=== PATIENT | male | born 1955 | race Caucasian/White ===

== ENCOUNTER 2016-10-02 17:22 | Inpatient (IN) | payer MEDICAID ==
[~2016-10-02] VITALS: Ht 177.8 cm; Wt 86.2 kg
[2016-10-02] MEDS ORDERED: HALOPERIDOL LACTATE INJ 5 MG/ML VIAL ONE (17:47)
[2016-10-02] MEDS ORDERED: DILTIAZEM HCL 25 MG IV ONE ×2 (17:47→18:48)
[2016-10-02] MEDS ORDERED: LORAZEPAM INJ 2 MG/ML VIAL ONE (17:47)
[2016-10-02] MEDS ORDERED: IV SET PRIMARY PUMP SET 1 EA INFUS.SET MC ONE ×5 (17:47→22:15)
[2016-10-02] MEDS ORDERED: IV NS 0.9% 1,000 ML ONE (17:47)
[2016-10-02 17:52] LABS: BASOPHILS % (AUTO) 0.6 % (0.0-2.0); DIFF TOTAL % 100 %; EOSINOPHILS # (AUTO) 0.1 /CMM (0.0-0.7); EOSINOPHILS % (AUTO) 1.4 % (0.0-6.0); HEMATOCRIT 32 % (39-51); HEMOGLOBIN 10.4 g/dL (13.5-17.5); LYMPHOCYTES # (AUTO) 1.3 /CMM (0.8-4.8); LYMPHOCYTES % (AUTO) 20.5 % (20.0-44.0); MEAN CORPUSCULAR HEMOGLOBIN 30 PG (26.0-33.0); MEAN CORPUSCULAR HGB CONC 33 g/dl (31.0-36.0); MEAN CORPUSCULAR VOLUME 92 fL (80-96); MONOCYTES # (AUTO) 0.4 /CMM (0.1-1.30); MONOCYTES % (AUTO) 6.5 % (2.0-12.0); NEUTROPHILS # (AUTO) 4.5 /CMM (1.8-8.9); PLATELET COUNT (AUTO) 191 /CMM (150-450); WHITE BLOOD COUNT (AUTO) 6.3 K/uL (4.3-11.0)
[2016-10-02] MEDS ORDERED: QUET300T2 PO (17:55)
[2016-10-02] MEDS ORDERED: METO25TA6 PO (17:55)
[2016-10-02] MEDS ORDERED: BUPR100T13 PO (17:55)
[2016-10-02] MEDS ORDERED: OMEP20CA10 PO (17:55)
[2016-10-02] MEDS ORDERED: TEMA30CA PO (17:55)
[2016-10-02] MEDS ORDERED: LISI10TA5 PO (17:55)
[2016-10-02] MEDS ORDERED: ATOR40TA PO (17:55)
[2016-10-02] MEDS ORDERED: HALOPERIDOL LACTATE INJ 5 MG/ML VIAL IVP ONE (18:00)
[2016-10-02] MEDS ORDERED: IV NS 0.9% 1,000 ML BAG IV ONE (18:00)
[2016-10-02] MEDS ORDERED: LORAZEPAM INJ 2 MG/ML VIAL IVP ONE (18:00)
[2016-10-02] MEDS ORDERED: DILTIAZEM HCL 50 MG IV IV ONE ×2 (18:00→19:00)
[2016-10-02 18:01] LABS: CALCIUM, SERUM 8.7 mg/dL (8.5-10.1); CREATININE 1.2 mg/dL (0.6-1.3); POTASSIUM 3.3 mmol/L (3.5-5.1)
[2016-10-02 18:07] LABS: TROPONIN I 0.052 ng/mL (0.00-0.056)
[2016-10-02 18:12] LABS: ALBUMIN 3.9 g/dL (3.4-5.0); BILIRUBIN,DIRECT 0.1 mg/dL (0.0-0.2); BILIRUBIN,TOTAL 0.3 mg/dL (0.2-1.0); INDIRECT BILIRUBIN 0.2 mg/dL (0.0-1.1); TOTAL PROTEIN, SERUM 7.8 g/dL (6.4-8.2)
[2016-10-02 18:13] LABS: SALICYLATE 1.2 mg/dL (2.8-20.0)
[2016-10-02 19:07] LABS: KETONES,URINE Negative (NEGATIVE); LEUKOCYTE ESTERASE ,URINE Negative (NEGATIVE)
[2016-10-02 19:13] LABS: CANNABINOID, URINE NEGATIVE (NEGATIVE); PHENCYCLIDINE SCREEN,URINE NEGATIVE (NEGATIVE)
[2016-10-02 19:27] LABS: ADD UA MICROSCOPIC YES
[2016-10-02 19:33] LABS: ADD URINE CULTURE NO; RBC,URINE 0-2 /HPF (0-2); WBC,URINE 0-2 /HPF (0-3)
[2016-10-02] MEDS ORDERED: NICARDIPINE 20 MG/200 ML IV ONE (20:00)
[2016-10-02] MEDS ORDERED: D5W IV ONE (20:00)
[2016-10-02] MEDS ORDERED: NICARDIPINE IN DEXTROSE,ISO-OS 200 ML IV ONE (20:30)
[2016-10-02 21:10] VITALS: BP 122/51
[2016-10-02] MEDS ORDERED: POTASSIUM CL. PREMIX PERIPHER. 50 ML ONE (21:26)
[2016-10-02 21:30] VITALS: BP 114/75
[2016-10-02] MEDS ORDERED: ONDANSETRON HCL/PF 4 MG/2 ML VIAL IVP PRN (21:30)
[2016-10-02] MEDS: Folic acid 1 MG in IV D5W 50 ML IV SCH ×2 (21:30→23:11)
[2016-10-02] MEDS ORDERED: MAGNESIUM HYDROXIDE 30 ML UDC PO PRN (21:30)
[2016-10-02] MEDS ORDERED: MAG HYDROX/AL HYDROX/SIMETH 30 ML UDC PO PRN (21:30)
[2016-10-02] MEDS ORDERED: Thiamine 100 MG in IV D5W 50 ML IV SCH (21:30)
[2016-10-02] MEDS ORDERED: Z GUARD REMEDY 2 OZ OINT TP PRN (21:30)
[2016-10-02] MEDS ORDERED: POTASSIUM CHLORIDE 10 MEQ/50 ML PREMIXED IVPB FOR PERIPHERAL LINE IV ONE (21:30)
[2016-10-02] MEDS ORDERED: IV D5/0.45 NACL 1,000 ML IV ONE (21:56)
[2016-10-02] MEDS ORDERED: SECONDARY IV SET 1 EA INFUS.SET MC ONE (21:57)
[2016-10-02] MEDS ORDERED: ASPIRIN 81 MG TAB.CHEW ONE (21:58)
[2016-10-02] MEDS ORDERED: Thiamine 100 MG/ML VIAL ONE (21:59)
[2016-10-02] MEDS ORDERED: IV D5W 100 ML IV ONE ×2 (21:59→22:12)
[2016-10-02 22:00] VITALS: BP 106/74
[2016-10-02] MEDS ORDERED: ATORVASTATIN 40 MG TABLET PO SCH (22:00)
[2016-10-02] MEDS: IV D5/0.45 NACL 1,000 ML IV PRN (22:02)
[2016-10-02 22:09] LABS: CREATINE KINASE MB 3.3 ng/mL (0-3.6)
[2016-10-02] MEDS ORDERED: AMIODARONE 150 MG/3 ML VIAL IV ONE ×3 (22:12→22:13)
[2016-10-02] MEDS ORDERED: IV D5W 500 ML IV ONE (22:17)
[2016-10-02] MEDS ORDERED: AMIODARONE 900 MG in IV D5W 482 ML IV PRN (22:30)
[2016-10-02] MEDS ORDERED: AMIODARONE 150 MG in IV D5W 100 ML IV ONE (22:30)
[2016-10-02] MEDS: ASPIRIN 81 MG TAB.CHEW PO SCH (22:30)
[2016-10-02 22:31] VITALS: BP 127/84
[2016-10-02] MEDS ORDERED: Folic acid 1 MG/0.2 ML VIAL ONE (22:38)
[2016-10-02 23:00] VITALS: BP 139/101
[2016-10-02 23:30] VITALS: BP 150/95
[2016-10-03] VITALS (26 sets, daily range): BP systolic 115–185; BP diastolic 87–117
[2016-10-03] MEDS ORDERED: ZOLPIDEM TARTRATE 5 MG TABLET ONE (02:19)
[2016-10-03] MEDS: ZOLPIDEM TARTRATE 5 MG TABLET PO PRN ×2 (02:23→22:28)
[2016-10-03] MEDS ORDERED: METOPROLOL TARTRATE 50 MG TABLET ONE (04:40)
[2016-10-03 04:44] LABS: BASOPHILS % (AUTO) 0.6 % (0.0-2.0); DIFF TOTAL % 100 %; EOSINOPHILS % (AUTO) 0.7 % (0.0-6.0); HEMATOCRIT 31 % (39-51); HEMOGLOBIN 10.3 g/dL (13.5-17.5); LYMPHOCYTES % (AUTO) 16.4 % (20.0-44.0); MEAN CORPUSCULAR HEMOGLOBIN 30 PG (26.0-33.0); MEAN CORPUSCULAR HGB CONC 33 g/dl (31.0-36.0); MEAN CORPUSCULAR VOLUME 92 fL (80-96); MONOCYTES # (AUTO) 0.5 /CMM (0.1-1.30); MONOCYTES % (AUTO) 8.3 % (2.0-12.0); NEUTROPHILS # (AUTO) 4.6 /CMM (1.8-8.9); PLATELET COUNT (AUTO) 200 /CMM (150-450); RED BLOOD CELL COUNT(AUTO) 3.42 MIL/uL (4.5-6.0); WHITE BLOOD COUNT (AUTO) 6.2 K/uL (4.3-11.0)
[2016-10-03 04:47] LABS: ALBUMIN 3.8 g/dL (3.4-5.0); BILIRUBIN,TOTAL 0.6 mg/dL (0.2-1.0); CALCIUM, SERUM 8.3 mg/dL (8.5-10.1); CREATININE 1.1 mg/dL (0.6-1.3); PHOSPHORUS 2.6 mg/dL (2.5-4.9); TOTAL PROTEIN, SERUM 7.6 g/dL (6.4-8.2)
[2016-10-03 04:52] LABS: INR 1.03 (0.87-1.13); PROTHROMBIN TIME 11.1 SECS (9.5-12.7)
[2016-10-03 04:56] LABS: THYROID STIMULATING HORMONE 1.33 uIU/mL (0.358-3.74)
[2016-10-03] MEDS ORDERED: METOPROLOL TARTRATE 50 MG TABLET PO ONE (05:00)
[2016-10-03] MEDS ORDERED: Magnesium 1GM/D5W 100ML PREMIX 100 ML IV ONE (05:47)
[2016-10-03] MEDS: Magnesium 1GM/D5W 100ML PREMIX 100 ML IV SCH ×4 (06:12→09:44)
[2016-10-03] MEDS: PANTOPRAZOLE 40 MG TABLET.DR PO SCH (07:36)
[2016-10-03] MEDS: ASPIRIN 81 MG TAB.CHEW PO SCH (08:11)
[2016-10-03] MEDS: MULTIVITAMIN LIQ 5 ML UDC PO SCH (08:11)
[2016-10-03] MEDS: LISINOPRIL (10MG) 10 MG TABLET PO SCH (08:11)
[2016-10-03] MEDS: METOPROLOL TARTRATE 25 MG TABLET PO SCH ×2 (08:12→14:44)
[2016-10-03] MEDS: ENOXAPARIN SODIUM 40 MG/0.4 ML DISP.SYRIN SQ SCH (08:14)
[2016-10-03] MEDS ORDERED: buPROPion 100 MG TABLET PO SCH (09:00)
[2016-10-03] MEDS: POTASSIUM CHLORIDE 20 MEQ TAB.PRT.SR PO SCH ×3 (11:19→12:33)
[2016-10-03] MEDS: IV D5/0.45 NACL 1,000 ML IV PRN (11:57)
[2016-10-03] MEDS ORDERED: Thiamine 100 MG in IV D5W 50 ML IV SCH (12:00)
[2016-10-03] MEDS ORDERED: Folic acid 1 MG in IV D5W 50 ML IV SCH (12:00)
[2016-10-03] MEDS ORDERED: SECONDARY IV SET 1 EA INFUS.SET MC ONE (12:29)
[2016-10-03] MEDS: GABAPENTIN 100 MG CAPSULE PO SCH ×2 (12:33→16:56)
[2016-10-03] MEDS: SERTRALINE HCL 50 MG TABLET PO SCH (12:33)
[2016-10-03] MEDS: LORAZEPAM INJ 2 MG/ML VIAL IV PRN (12:40)
[2016-10-03] MEDS ORDERED: SOD FERRIC GLUC 125 MG in IV NS 0.9% 100 ML IV SCH (14:00)
[2016-10-03] MEDS: LORAZEPAM 1 MG TABLET PO PRN (17:26)
[2016-10-03] MEDS: AMIODARONE HCL 200 MG TABLET PO SCH (21:22)
[2016-10-04] VITALS: BP 123/89
[2016-10-04 00:09] VITALS: BP 123/89
[2016-10-04] MEDS: IV D5/0.45 NACL 1,000 ML IV PRN (02:06)
[2016-10-04 04:00] VITALS: BP 146/97
[2016-10-04] MEDS: LORAZEPAM INJ 2 MG/ML VIAL IV PRN (04:42)
[2016-10-04] MEDS: AMIODARONE HCL 200 MG TABLET PO SCH ×3 (04:44→21:09)
[2016-10-04 06:43] LABS: CALCIUM, SERUM 8.8 mg/dL (8.5-10.1); CREATININE 1.4 mg/dL (0.6-1.3)
[2016-10-04 08:00] VITALS: BP 137/94
[2016-10-04] MEDS: MULTIVITAMIN LIQ 5 ML UDC PO SCH (08:52)
[2016-10-04] MEDS: LISINOPRIL (10MG) 10 MG TABLET PO SCH (08:52)
[2016-10-04] MEDS: THIAMINE HCL 100 MG TABLET PO SCH (08:52)
[2016-10-04] MEDS: SERTRALINE HCL 50 MG TABLET PO SCH (08:52)
[2016-10-04] MEDS: ASPIRIN 81 MG TAB.CHEW PO SCH (08:53)
[2016-10-04] MEDS: PANTOPRAZOLE 40 MG TABLET.DR PO SCH (08:53)
[2016-10-04] MEDS: METOPROLOL TARTRATE 25 MG TABLET PO SCH ×2 (08:53→16:59)
[2016-10-04] MEDS: FOLIC ACID 1 MG TABLET PO SCH (08:53)
[2016-10-04] MEDS: GABAPENTIN 100 MG CAPSULE PO SCH ×3 (08:53→16:59)
[2016-10-04] MEDS: ENOXAPARIN SODIUM 40 MG/0.4 ML DISP.SYRIN SQ SCH (08:54)
[2016-10-04] MEDS ORDERED: Magnesium 1GM/D5W 100ML PREMIX 100 ML IV SCH (09:03)
[2016-10-04] MEDS: MAGNESIUM OXIDE 400 MG TABLET PO SCH ×3 (10:36→16:57)
[2016-10-04] MEDS: LORAZEPAM 1 MG TABLET PO PRN (11:13)
[2016-10-04] MEDS ORDERED: LORAZEPAM INJ 2 MG/ML VIAL IM STA (11:51)
[2016-10-04] MEDS ORDERED: LORAZEPAM 1 MG TABLET PO SCH (13:00)
[2016-10-04] MEDS ORDERED: LORAZEPAM INJ 2 MG/ML VIAL IM/IV PRN (15:30)
[2016-10-04 16:00] VITALS: BP 147/58
[2016-10-04] MEDS: FERROUS SULFATE (325 MG) 325 MG/TAB TABLET PO SCH (17:00)
[2016-10-04] MEDS ORDERED: LORAZEPAM INJ 2 MG/ML VIAL IM PRN (17:00)
[2016-10-04 20:00] VITALS: BP 156/108
[2016-10-04] MEDS: LORAZEPAM INJ 2 MG/ML VIAL IM/IV SCH (21:10)
[2016-10-04] MEDS: ZOLPIDEM TARTRATE 5 MG TABLET PO PRN (21:56)
[2016-10-05] MEDS ORDERED: QUETIAPINE FUMARATE 25 MG TABLET ONE (00:37)
[2016-10-05] MEDS: QUETIAPINE FUMARATE 25 MG TABLET PO SCH ×3 (00:44→20:44)
[2016-10-05] MEDS: LORAZEPAM INJ 2 MG/ML VIAL IM/IV SCH ×4 (03:39→20:45)
[2016-10-05 04:00] VITALS: BP 163/99
[2016-10-05] MEDS: AMIODARONE HCL 200 MG TABLET PO SCH ×3 (05:38→20:44)
[2016-10-05 06:54] LABS: BASOPHILS # (AUTO) 0.1 /CMM (0.0-0.2); BASOPHILS % (AUTO) 0.7 % (0.0-2.0); DIFF TOTAL % 100 %; EOSINOPHILS # (AUTO) 0.2 /CMM (0.0-0.7); HEMATOCRIT 29 % (39-51); HEMOGLOBIN 9.2 g/dL (13.5-17.5); LYMPHOCYTES # (AUTO) 1.2 /CMM (0.8-4.8); LYMPHOCYTES % (AUTO) 13.3 % (20.0-44.0); MEAN CORPUSCULAR HEMOGLOBIN 29 PG (26.0-33.0); MEAN CORPUSCULAR HGB CONC 32 g/dl (31.0-36.0); MEAN CORPUSCULAR VOLUME 91 fL (80-96); MONOCYTES # (AUTO) 0.8 /CMM (0.1-1.30); MONOCYTES % (AUTO) 9.4 % (2.0-12.0); NEUTROPHILS # (AUTO) 6.6 /CMM (1.8-8.9); NEUTROPHILS % (AUTO) 74.6 % (43.0-81.0); PLATELET COUNT (AUTO) 163 /CMM (150-450); RED BLOOD CELL COUNT(AUTO) 3.15 MIL/uL (4.5-6.0); WHITE BLOOD COUNT (AUTO) 8.8 K/uL (4.3-11.0)
[2016-10-05 07:16] LABS: CALCIUM, SERUM 8.8 mg/dL (8.5-10.1); CREATININE 1.3 mg/dL (0.6-1.3); POTASSIUM 3.9 mmol/L (3.5-5.1)
[2016-10-05 08:00] VITALS: BP 135/85
[2016-10-05] MEDS: FOLIC ACID 1 MG TABLET PO SCH (09:19)
[2016-10-05] MEDS: ASPIRIN 81 MG TAB.CHEW PO SCH (09:19)
[2016-10-05] MEDS: MULTIVITAMIN LIQ 5 ML UDC PO SCH (09:21)
[2016-10-05] MEDS: FERROUS SULFATE (325 MG) 325 MG/TAB TABLET PO SCH ×3 (09:21→16:16)
[2016-10-05] MEDS: PANTOPRAZOLE 40 MG TABLET.DR PO SCH (09:21)
[2016-10-05] MEDS: GABAPENTIN 100 MG CAPSULE PO SCH ×3 (09:21→16:17)
[2016-10-05] MEDS: THIAMINE HCL 100 MG TABLET PO SCH (09:21)
[2016-10-05] MEDS: LISINOPRIL (10MG) 10 MG TABLET PO SCH (09:22)
[2016-10-05] MEDS: ENOXAPARIN SODIUM 40 MG/0.4 ML DISP.SYRIN SQ SCH (09:23)
[2016-10-05] MEDS: METOPROLOL TARTRATE 25 MG TABLET PO SCH ×2 (10:00→16:16)
[2016-10-05] MEDS ORDERED: Magnesium 1GM/D5W 100ML PREMIX 100 ML IV SCH (12:00)
[2016-10-05] MEDS: MAGNESIUM OXIDE 400 MG TABLET PO SCH ×2 (12:57→16:16)
[2016-10-05 16:00] VITALS: BP 132/84
[2016-10-05] MEDS: HYDROCODONE/APAP 5/325MG 1 EACH TABLET PO PRN (19:55)
[2016-10-05 20:00] VITALS: BP 140/94
[2016-10-06 04:00] VITALS: BP 139/97
[2016-10-06] MEDS: LORAZEPAM INJ 2 MG/ML VIAL IM/IV SCH ×4 (04:31→21:36)
[2016-10-06] MEDS: AMIODARONE HCL 200 MG TABLET PO SCH ×3 (05:37→20:36)
[2016-10-06 08:00] VITALS: BP 145/93
[2016-10-06 08:24] LABS: CALCIUM, SERUM 8.8 mg/dL (8.5-10.1); CREATININE 1.4 mg/dL (0.6-1.3); POTASSIUM 3.7 mmol/L (3.5-5.1)
[2016-10-06] MEDS: GABAPENTIN 100 MG CAPSULE PO SCH ×3 (08:33→16:52)
[2016-10-06] MEDS: THIAMINE HCL 100 MG TABLET PO SCH (08:33)
[2016-10-06] MEDS: ENOXAPARIN SODIUM 40 MG/0.4 ML DISP.SYRIN SQ SCH (08:33)
[2016-10-06] MEDS: MULTIVITAMIN LIQ 5 ML UDC PO SCH (08:33)
[2016-10-06] MEDS: FOLIC ACID 1 MG TABLET PO SCH (08:33)
[2016-10-06] MEDS: ASPIRIN 81 MG TAB.CHEW PO SCH (08:33)
[2016-10-06] MEDS: FERROUS SULFATE (325 MG) 325 MG/TAB TABLET PO SCH ×3 (08:34→16:52)
[2016-10-06] MEDS: LISINOPRIL (10MG) 10 MG TABLET PO SCH (08:35)
[2016-10-06] MEDS: MAGNESIUM OXIDE 400 MG TABLET PO SCH ×2 (08:36→16:51)
[2016-10-06] MEDS: PANTOPRAZOLE 40 MG TABLET.DR PO SCH (08:36)
[2016-10-06] MEDS: METOPROLOL TARTRATE 25 MG TABLET PO SCH ×2 (08:36→17:00)
[2016-10-06] MEDS: QUETIAPINE FUMARATE 25 MG TABLET PO SCH ×2 (08:37→20:36)
[2016-10-06 08:41] LABS: BASOPHILS % (AUTO) 0.5 % (0.0-2.0); DIFF TOTAL % 100 %; EOSINOPHILS # (AUTO) 0.1 /CMM (0.0-0.7); HEMATOCRIT 31 % (39-51); HEMOGLOBIN 9.9 g/dL (13.5-17.5); LYMPHOCYTES # (AUTO) 0.9 /CMM (0.8-4.8); LYMPHOCYTES % (AUTO) 11.2 % (20.0-44.0); MEAN CORPUSCULAR HEMOGLOBIN 29 PG (26.0-33.0); MEAN CORPUSCULAR HGB CONC 32 g/dl (31.0-36.0); MEAN CORPUSCULAR VOLUME 91 fL (80-96); MONOCYTES # (AUTO) 1.1 /CMM (0.1-1.30); MONOCYTES % (AUTO) 13.2 % (2.0-12.0); NEUTROPHILS # (AUTO) 6.2 /CMM (1.8-8.9); NEUTROPHILS % (AUTO) 74.1 % (43.0-81.0); PLATELET COUNT (AUTO) 158 /CMM (150-450); RED BLOOD CELL COUNT(AUTO) 3.39 MIL/uL (4.5-6.0); WHITE BLOOD COUNT (AUTO) 8.3 K/uL (4.3-11.0)
[2016-10-06] MEDS ORDERED: SECONDARY IV SET 1 EA INFUS.SET MC ONE (10:13)
[2016-10-06] MEDS: Magnesium 1GM/D5W 100ML PREMIX 100 ML IV SCH ×4 (11:37→14:03)
[2016-10-06 12:00] VITALS: BP 125/72
[2016-10-06] MEDS ORDERED: IV SET PRIMARY PUMP SET 1 EA INFUS.SET MC ONE (15:02)
[2016-10-06 16:00] VITALS: BP 96/59
[2016-10-06] MEDS: ACETAMINOPHEN 325 MG TABLET PO PRN (20:36)
[2016-10-06 23:50] VITALS: BP 106/80
[2016-10-07 04:00] VITALS: BP 117/76
[2016-10-07] MEDS: LORAZEPAM INJ 2 MG/ML VIAL IM/IV SCH ×2 (04:23→08:54)
[2016-10-07] MEDS: AMIODARONE HCL 200 MG TABLET PO SCH ×3 (04:40→20:17)
[2016-10-07] MEDS: HYDROCODONE/APAP 5/325MG 1 EACH TABLET PO PRN (06:41)
[2016-10-07 07:52] LABS: CALCIUM, SERUM 8.9 mg/dL (8.5-10.1); CREATININE 1.6 mg/dL (0.6-1.3); POTASSIUM 3.7 mmol/L (3.5-5.1)
[2016-10-07 08:00] VITALS: BP 114/79
[2016-10-07] MEDS: GABAPENTIN 100 MG CAPSULE PO SCH ×3 (08:51→16:49)
[2016-10-07] MEDS: ENOXAPARIN SODIUM 40 MG/0.4 ML DISP.SYRIN SQ SCH (08:51)
[2016-10-07] MEDS: THIAMINE HCL 100 MG TABLET PO SCH (08:51)
[2016-10-07] MEDS: FERROUS SULFATE (325 MG) 325 MG/TAB TABLET PO SCH ×3 (08:51→16:49)
[2016-10-07] MEDS: MULTIVITAMIN LIQ 5 ML UDC PO SCH (08:51)
[2016-10-07] MEDS: QUETIAPINE FUMARATE 25 MG TABLET PO SCH ×2 (08:51→20:17)
[2016-10-07] MEDS: PANTOPRAZOLE 40 MG TABLET.DR PO SCH (08:52)
[2016-10-07] MEDS: ASPIRIN 81 MG TAB.CHEW PO SCH (08:52)
[2016-10-07] MEDS: FOLIC ACID 1 MG TABLET PO SCH (08:52)
[2016-10-07] MEDS: LISINOPRIL (10MG) 10 MG TABLET PO SCH (08:53)
[2016-10-07] MEDS: METOPROLOL TARTRATE 25 MG TABLET PO SCH ×2 (08:53→16:49)
[2016-10-07] MEDS ORDERED: LORAZEPAM 1 MG TABLET PO PRN (14:00)
[2016-10-07 16:00] VITALS: BP 129/83
[2016-10-07] MEDS: LORAZEPAM 1 MG TABLET PO SCH (16:49)
[2016-10-07] MEDS ORDERED: LORAZEPAM INJ 2 MG/ML VIAL IM PRN (17:00)
[2016-10-07 20:00] VITALS: BP 114/74
[2016-10-07] MEDS: ACETAMINOPHEN 325 MG TABLET PO PRN (20:08)
[2016-10-08] MEDS: LORAZEPAM 1 MG TABLET PO SCH ×3 (00:31→17:22)
[2016-10-08 04:00] VITALS: BP 126/86
[2016-10-08] MEDS: AMIODARONE HCL 200 MG TABLET PO SCH ×3 (04:39→21:27)
[2016-10-08 07:45] LABS: CALCIUM, SERUM 8.4 mg/dL (8.5-10.1); CREATININE 1.5 mg/dL (0.6-1.3); POTASSIUM 3.6 mmol/L (3.5-5.1)
[2016-10-08 08:00] VITALS: BP 110/72
[2016-10-08] MEDS: MULTIVITAMIN LIQ 5 ML UDC PO SCH (08:06)
[2016-10-08] MEDS: GABAPENTIN 100 MG CAPSULE PO SCH ×3 (08:07→17:21)
[2016-10-08] MEDS: QUETIAPINE FUMARATE 25 MG TABLET PO SCH ×3 (08:07→21:18)
[2016-10-08] MEDS: THIAMINE HCL 100 MG TABLET PO SCH (08:07)
[2016-10-08] MEDS: FOLIC ACID 1 MG TABLET PO SCH (08:07)
[2016-10-08] MEDS: FERROUS SULFATE (325 MG) 325 MG/TAB TABLET PO SCH ×3 (08:07→17:22)
[2016-10-08] MEDS: ASPIRIN 81 MG TAB.CHEW PO SCH (08:07)
[2016-10-08] MEDS: PANTOPRAZOLE 40 MG TABLET.DR PO SCH (08:07)
[2016-10-08] MEDS: LISINOPRIL (10MG) 10 MG TABLET PO SCH (08:08)
[2016-10-08] MEDS: METOPROLOL TARTRATE 25 MG TABLET PO SCH ×2 (08:08→17:00)
[2016-10-08] MEDS: ENOXAPARIN SODIUM 40 MG/0.4 ML DISP.SYRIN SQ SCH (08:09)
[2016-10-08] MEDS: ACETAMINOPHEN 325 MG TABLET PO PRN (12:23)
[2016-10-08] MEDS ORDERED: GABAPENTIN 100 MG CAPSULE PO SCH (13:00)
[2016-10-08 16:00] VITALS: BP 94/64
[2016-10-08 20:53] VITALS: BP 97/62
[2016-10-09] MEDS: LORAZEPAM 1 MG TABLET PO SCH ×3 (01:00→16:54)
[2016-10-09] MEDS: HYDROCODONE/APAP 5/325MG 1 EACH TABLET PO PRN (03:40)
[2016-10-09] MEDS: AMIODARONE HCL 200 MG TABLET PO SCH ×3 (05:43→21:51)
[2016-10-09 07:11] LABS: CALCIUM, SERUM 8.8 mg/dL (8.5-10.1); CREATININE 1.5 mg/dL (0.6-1.3); POTASSIUM 3.6 mmol/L (3.5-5.1)
[2016-10-09] MEDS: GABAPENTIN 100 MG CAPSULE PO SCH ×3 (08:49→16:53)
[2016-10-09] MEDS: PANTOPRAZOLE 40 MG TABLET.DR PO SCH (08:49)
[2016-10-09] MEDS: THIAMINE HCL 100 MG TABLET PO SCH (08:49)
[2016-10-09] MEDS: MULTIVITAMIN LIQ 5 ML UDC PO SCH (08:49)
[2016-10-09] MEDS: LISINOPRIL (10MG) 10 MG TABLET PO SCH (08:49)
[2016-10-09] MEDS: QUETIAPINE FUMARATE 25 MG TABLET PO SCH ×3 (08:50→21:51)
[2016-10-09] MEDS: FERROUS SULFATE (325 MG) 325 MG/TAB TABLET PO SCH ×3 (08:50→16:53)
[2016-10-09] MEDS: METOPROLOL TARTRATE 25 MG TABLET PO SCH ×2 (08:51→16:53)
[2016-10-09] MEDS: FOLIC ACID 1 MG TABLET PO SCH (08:52)
[2016-10-09] MEDS: ASPIRIN 81 MG TAB.CHEW PO SCH (08:52)
[2016-10-09] MEDS: ENOXAPARIN SODIUM 40 MG/0.4 ML DISP.SYRIN SQ SCH (09:08)
[2016-10-09 20:00] VITALS: BP 107/62
[2016-10-10] MEDS: LORAZEPAM 1 MG TABLET PO SCH ×3 (01:00→18:02)
[2016-10-10 04:00] VITALS: BP 101/62
[2016-10-10] MEDS: AMIODARONE HCL 200 MG TABLET PO SCH ×3 (05:09→21:12)
[2016-10-10 08:00] VITALS: BP 133/85
[2016-10-10 09:15] LABS: BASOPHILS % (AUTO) 0.2 % (0.0-2.0); DIFF TOTAL % 100 %; EOSINOPHILS # (AUTO) 0.1 /CMM (0.0-0.7); EOSINOPHILS % (AUTO) 0.9 % (0.0-6.0); HEMATOCRIT 28 % (39-51); HEMOGLOBIN 8.9 g/dL (13.5-17.5); LYMPHOCYTES # (AUTO) 0.7 /CMM (0.8-4.8); MEAN CORPUSCULAR HEMOGLOBIN 29 PG (26.0-33.0); MEAN CORPUSCULAR HGB CONC 32 g/dl (31.0-36.0); MEAN CORPUSCULAR VOLUME 91 fL (80-96); MONOCYTES # (AUTO) 0.6 /CMM (0.1-1.30); MONOCYTES % (AUTO) 8.3 % (2.0-12.0); NEUTROPHILS # (AUTO) 5.9 /CMM (1.8-8.9); NEUTROPHILS % (AUTO) 80.6 % (43.0-81.0); PLATELET COUNT (AUTO) 213 /CMM (150-450); RED BLOOD CELL COUNT(AUTO) 3.07 MIL/uL (4.5-6.0); WHITE BLOOD COUNT (AUTO) 7.3 K/uL (4.3-11.0)
[2016-10-10 09:23] LABS: CALCIUM, SERUM 9.4 mg/dL (8.5-10.1); CREATININE 1.4 mg/dL (0.6-1.3); POTASSIUM 4.1 mmol/L (3.5-5.1)
[2016-10-10] MEDS: ASPIRIN 81 MG TAB.CHEW PO SCH (10:00)
[2016-10-10] MEDS: PANTOPRAZOLE 40 MG TABLET.DR PO SCH (10:00)
[2016-10-10] MEDS: QUETIAPINE FUMARATE 25 MG TABLET PO SCH ×2 (10:01→18:00)
[2016-10-10] MEDS: FERROUS SULFATE (325 MG) 325 MG/TAB TABLET PO SCH ×3 (10:02→18:02)
[2016-10-10] MEDS: FOLIC ACID 1 MG TABLET PO SCH (10:03)
[2016-10-10] MEDS: THIAMINE HCL 100 MG TABLET PO SCH (10:03)
[2016-10-10] MEDS: METOPROLOL TARTRATE 25 MG TABLET PO SCH ×2 (10:03→18:01)
[2016-10-10] MEDS: GABAPENTIN 100 MG CAPSULE PO SCH ×3 (10:03→18:00)
[2016-10-10] MEDS: LISINOPRIL (10MG) 10 MG TABLET PO SCH (10:04)
[2016-10-10] MEDS: MULTIVITAMIN LIQ 5 ML UDC PO SCH (10:04)
[2016-10-10 12:00] VITALS: BP 110/65
[2016-10-10] MEDS ORDERED: MORPHINE SULFATE INJ 2 MG/ML DISP.SYRIN IV PRN (12:00)
[2016-10-10] MEDS: HYDROCODONE/APAP 5/325MG 1 EACH TABLET PO PRN ×2 (13:12→21:13)
[2016-10-10] MEDS: ENOXAPARIN SODIUM 40 MG/0.4 ML DISP.SYRIN SQ SCH (14:31)
[2016-10-10 16:00] VITALS: BP 105/66
[2016-10-10 20:00] VITALS: BP 103/70
[2016-10-10] MEDS ORDERED: QUETIAPINE FUMARATE 25 MG TABLET PO SCH (22:00)
[2016-10-11] MEDS: LORAZEPAM 1 MG TABLET PO SCH ×3 (01:15→17:08)
[2016-10-11] MEDS: HYDROCODONE/APAP 5/325MG 1 EACH TABLET PO PRN ×3 (01:16→13:05)
[2016-10-11 04:00] VITALS: BP 122/73
[2016-10-11] MEDS: AMIODARONE HCL 200 MG TABLET PO SCH ×2 (05:12→13:07)
[2016-10-11 06:40] LABS: BASOPHILS # (AUTO) 0.1 /CMM (0.0-0.2); BASOPHILS % (AUTO) 1.5 % (0.0-2.0); DIFF TOTAL % 100 %; EOSINOPHILS # (AUTO) 0.1 /CMM (0.0-0.7); EOSINOPHILS % (AUTO) 1.9 % (0.0-6.0); HEMATOCRIT 28 % (39-51); HEMOGLOBIN 8.8 g/dL (13.5-17.5); LYMPHOCYTES # (AUTO) 0.9 /CMM (0.8-4.8); LYMPHOCYTES % (AUTO) 14.5 % (20.0-44.0); MEAN CORPUSCULAR HEMOGLOBIN 29 PG (26.0-33.0); MEAN CORPUSCULAR HGB CONC 32 g/dl (31.0-36.0); MEAN CORPUSCULAR VOLUME 91 fL (80-96); MONOCYTES # (AUTO) 0.8 /CMM (0.1-1.30); MONOCYTES % (AUTO) 12.4 % (2.0-12.0); NEUTROPHILS # (AUTO) 4.4 /CMM (1.8-8.9); NEUTROPHILS % (AUTO) 69.7 % (43.0-81.0); PLATELET COUNT (AUTO) 248 /CMM (150-450); RED BLOOD CELL COUNT(AUTO) 3.08 MIL/uL (4.5-6.0); WHITE BLOOD COUNT (AUTO) 6.4 K/uL (4.3-11.0)
[2016-10-11 06:49] LABS: CALCIUM, SERUM 9.2 mg/dL (8.5-10.1); CREATININE 1.2 mg/dL (0.6-1.3); POTASSIUM 4.1 mmol/L (3.5-5.1)
[2016-10-11 08:00] VITALS: BP 118/77
[2016-10-11] MEDS: MULTIVITAMIN LIQ 5 ML UDC PO SCH (08:44)
[2016-10-11] MEDS: QUETIAPINE FUMARATE 25 MG TABLET PO SCH ×2 (08:45→17:08)
[2016-10-11] MEDS: GABAPENTIN 100 MG CAPSULE PO SCH ×3 (08:45→17:08)
[2016-10-11] MEDS: THIAMINE HCL 100 MG TABLET PO SCH (08:45)
[2016-10-11] MEDS: LISINOPRIL (10MG) 10 MG TABLET PO SCH (08:46)
[2016-10-11] MEDS: ASPIRIN 81 MG TAB.CHEW PO SCH (08:46)
[2016-10-11] MEDS: FOLIC ACID 1 MG TABLET PO SCH (08:46)
[2016-10-11] MEDS: PANTOPRAZOLE 40 MG TABLET.DR PO SCH (08:46)
[2016-10-11] MEDS: FERROUS SULFATE (325 MG) 325 MG/TAB TABLET PO SCH ×3 (08:46→17:08)
[2016-10-11] MEDS: METOPROLOL TARTRATE 25 MG TABLET PO SCH ×2 (08:47→17:09)
[2016-10-11] MEDS: ENOXAPARIN SODIUM 40 MG/0.4 ML DISP.SYRIN SQ SCH (08:51)
[2016-10-11 16:00] VITALS: BP 105/68
[2016-10-11 17:09] VITALS: BP 105/68
[2016-10-11] MEDS ORDERED: PNEUMOCOCCAL 23-VAL P-SAC VAC 0.5 ML VIAL SQ ONE (18:30)
== END 2016-10-11 19:11 | disposition home or self-care (01) | DRG 201 ==
LOC: ER 17:24 → ICU 20:52 → TELE-TD 10-03 17:20 → MEDSG1 10-04 09:37
PROVIDERS: ADMIT Internal Medicine; ATTEND Internal Medicine
DX: I48.91 Unspecified atrial fibrillation (principal); N17.0 Acute kidney failure with tubular necrosis; G93.41 Metabolic encephalopathy; E44.0 Moderate protein-calorie malnutrition; D68.59 Other primary thrombophilia; I42.9 Cardiomyopathy, unspecified; E83.42 Hypomagnesemia; F03.90 Unspecified dementia, unspecified severity, without behavioral disturbance, psychotic disturbance, mood disturbance, and anxiety; F29 Unspecified psychosis not due to a substance or known physiological condition; E78.5 Hyperlipidemia, unspecified; Z87.891 Personal history of nicotine dependence; F32.9 Major depressive disorder, single episode, unspecified; F10.229 Alcohol dependence with intoxication, unspecified; I11.9 Hypertensive heart disease without heart failure; D64.9 Anemia, unspecified; E87.6 Hypokalemia; F43.10 Post-traumatic stress disorder, unspecified; F60.9 Personality disorder, unspecified; M70.31 Other bursitis of elbow, right elbow; Z91.19 Patient's noncompliance with other medical treatment and regimen
CPT/HCPCS: 36415; 71010-TC; 73070-TC; 80048-TC; 80053-TC; 80061-TC; 80076-TC; 80305; 81000-TC; 82553-TC; 82746; 83540-TC; 83735-TC; 84100-TC; 84443-TC; 84484-TC; 85025-TC; 85730-TC; 87040-TC; 87081-TC; 87086-TC; 90732; 93307-TC; 97001-TC; 97110-TC; 97116-TC; 97530-TC; A4606; G0480; G6039-TC; J0282; J1630; J1650; J2060; J2270; J2916; J3411; J3475; J3480; J3490; J7030; J7060; Z7610